=== PATIENT | male | born 1950 | race Caucasian/White ===

== ENCOUNTER 2016-09-07 23:29 | Emergency (ER) | payer OTHER ==
--- NOTE | 2016-09-07 23:45 | CPEKG ---
Heart Rate: 53 RR Interval: 1132 P-R Interval: 184 QRSD Interval: 172 QT Interval: 500 QTC Interval: 470 P [place]: 51 QRS [place]: 42 T Wave [place]: 46 EKG Severity - ABNORMAL ECG - EKG Impression: SINUS RHYTHM EKG Impression: RIGHT BUNDLE BRANCH BLOCK Electronically Signed By: Kumar Washington 08-Sep-2016 07:04:11
[2016-09-07] MEDS ORDERED: NS 1,000 ML IV ONE (23:55)
[2016-09-07 23:59] LABS: % IMMATURE GRANULYOCYTES 0.5 % (0.0-1.1); ABSOLUTE IMMATURE GRANULOCYTES 0.08 10^3/uL (0.00-0.10); ADD DIFF? NO; ADD MORPH? NO; ADD SCAN? NO; ATYPICAL LYMPHOCYTE FLAG 10 (0-99); FRAGMENT RBC FLAG 0 (0-99); HEMATOCRIT 42.4 % (40.0-51.0); HEMOGLOBIN 14.8 g/dL (13.7-17.5); LEFT SHIFT FLG 0 (0-99); LIPEMIA HEMOLYSIS FLAG 90 (0-99); MEAN CELL HEMOGLOBIN 31.1 pg (27.9-34.1); MEAN CELL HEMOGLOBIN CONCENTR. 34.9 g/dL (32.4-36.7); MEAN CELL VOLUME 89.1 fL (81.5-99.8); MEAN PLATELET VOLUME 10.4 fL (8.7-11.7); PLATELET CLUMPS FLAG 20 (0-99); PLATELET COUNT 191 10^3/uL (150-400); RED BLOOD CELL COUNT 4.76 10^6/uL (4.40-6.38); RED CELL DISTRIBUTION WIDTH 12.9 % (11.5-15.2)
[2016-09-08] MEDS ORDERED: ONDANSETRON 4 MG/2 ML VIAL IVP ONE (00:05)
[2016-09-08 00:16] LABS: ANION GAP 16 mEq/L (8-16); CALCIUM 9.8 mg/dL (8.5-10.4); CARBON DIOXIDE 17 mEq/l (22-31); CHLORIDE 106 mEq/L (97-110); CREATININE 1.1 mg/dL (0.7-1.3); GLOMERULAR FILTRATION RATE > 60; GLUCOSE 140 mg/dL (70-100); POTASSIUM 4.3 mEq/L (3.5-5.2); SODIUM 139 mEq/L (134-144)
[2016-09-08 00:56] LABS: TROPONIN I < 0.012 ng/mL (0-0.034)
[2016-09-08 02:10] VITALS: RESP 20
--- NOTE | 2016-09-08 02:32 | EDPHY ---
H & P Stated Complaint: N/V/D abd pain since 6pm tonight Time Seen by Provider: 09/07/16 23:58 HPI/ROS: Chief Complaint: Vomiting HPI: 66-year-old male began having some mild abdominal cramping in the afternoon and then around dinnertime began vomiting. He has vomited multiple times is been able to keep anything down since then. Did have 2 loose stools but no diarrhea. No blood or melena. No hematemesis. Has not had any further abdominal pain. No chest pain shortness of breath. No recent travel. did state that he appeared a little bit clammy. ROS: 10 point Review of Systems is negative except as noted in the HPI. PMH: Hypertension, GERD, BPH Medications: Omeprazole, aspirin, tamsulosin, losartan, amlodipine Allergies: No known drug allergies Social History: No smoking, occasional alcohol, occasional marijuana Family History: non-contributory Physical Exam: Gen: Awake, Alert, No Distress HEENT: Nose: no rhinorrhea Eyes: PERRLA, EOMI Mouth: Dry mucosa Neck: Supple, no JVD Chest: nontender, lungs clear to auscultation Heart: S1, S2 normal, no murmur Abd: Soft, non-tender, no guarding Back: no CVA tenderness, no midline tenderness Ext: no edema, non-tender Skin: no rash Neuro: CN II-XII intact, Sensation grossly intact, Strength 5/5 in bilateral upper and lower extremities - Personal History Current Tetanus Diphtheria and Acellular Pertussis (TDAP): Yes - Medical/Surgical History Hx Asthma: No Hx Chronic Respiratory Disease: No Hx Diabetes: No Hx Cardiac Disease: No Hx Renal Disease: No Hx Cirrhosis: No Hx Alcoholism: No Hx HIV/AIDS: No Hx Splenectomy or Spleen Trauma: No Other PMH: GERD, htn, BPH - Social History Smoking Status: Never smoked Constitutional: Initial Vital Signs Heart Rate 53 L 09/07/16 23:34 Respiratory Rate 16 09/07/16 23:34 Blood Pressure 136/76 H 09/07/16 23:34 O2 Sat (%) 98 09/07/16 23:34 O2 Delivery Mode Room Air O2 (L/minute) 2 Allergies/Adverse Reactions: No Known Allergies Allergy (Unverified 07/29/15 19:26) Home Medications: Medication Instructions Recorded Aspirin [Aspirin 81mg (OTC)] 81 mg PO DAILY #0 08/04/14 Losartan Potassium [Cozaar] 100 mg PO DAILY #0 08/04/14 Omeprazole [Prilosec 20 mg] 20 mg PO DAILY #0 08/04/14 Tamsulosin HCl [Flomax] 0.4 mg PO DAILY #0 08/04/14 Medical Decision Making - Diagnostics EKG Interpretation: ECG time 11:43 p.m., sinus rhythm with a rate of 53, normal axis, normal intervals, he is a right bundle branch block, no acute ST or T-wave changes. ED Course/Re-evaluation: 4-year-old male with some abdominal cramping in the afternoon and vomiting since. Does not have any abdominal pain since that time. He is clinically dehydrated. He was appearing a bit clammy this evening. Will check labs ECG in reassess. ECG is unremarkable, laboratory evaluations are negative including a normal troponin. Patient is feeling significantly improved after ondansetron and fluids. He is tolerating p.o.. No evidence of acute cardio pulmonary process at this time. He has a soft benign abdomen. Will discharge with follow-up with primary care physician instructions return for worsening. - Data Points Laboratory Results: Laboratory Results 09/07/16 23:50 09/07/16 23:50 09/07/16 09/07/16 23:50 23:50 WBC 15.80 10^3/uL H 10^3/uL (3.80-9.50) RBC 4.76 10^6/uL 10^6/uL (4.40-6.38) Hgb 14.8 g/dL g/dL (13.7-17.5) Hct 42.4 % % (40.0-51.0) MCV 89.1 fL fL (81.5-99.8) MCH 31.1 pg pg (27.9-34.1) MCHC 34.9 g/dL g/dL (32.4-36.7) RDW 12.9 % % (11.5-15.2) Plt Count 191 10^3/uL 10^3/uL (150-400) MPV 10.4 fL fL (8.7-11.7) Neut % (Auto) 72.7 % % (39.3-74.2) Lymph % (Auto) 19.1 % % (15.0-45.0) [place] % (Auto) 6.9 % % (4.5-13.0) Eos % (Auto) 0.4 % L % (0.6-7.6) Baso % (Auto) 0.4 % % (0.3-1.7) Nucleat RBC Rel Count 0.0 % % (0.0-0.2) Absolute Neuts (auto) 11.49 10^3/uL H 10^3/uL (1.70-6.50) Absolute Lymphs (auto) 3.01 10^3/uL H 10^3/uL (1.00-3.00) Absolute Monos (auto) 1.09 10^3/uL H 10^3/uL (0.30-0.80) Absolute Eos (auto) 0.07 10^3/uL 10^3/uL (0.03-0.40) Absolute Basos (auto) 0.06 10^3/uL 10^3/uL (0.02-0.10) Absolute Nucleated RBC 0.00 10^3/uL 10^3/uL (0-0.01) Immature Gran % 0.5 % % (0.0-1.1) Immature Gran # 0.08 10^3/uL 10^3/uL (0.00-0.10) Sodium 139 mEq/L mEq/L (134-144) Potassium 4.3 mEq/L mEq/L (3.5-5.2) Chloride 106 mEq/L mEq/L (97-110) Carbon Dioxide 17 mEq/l L mEq/l (22-31) Anion Gap 16 mEq/L mEq/L (8-16) BUN 26 mg/dL H mg/dL (7-23) Creatinine 1.1 mg/dL mg/dL (0.7-1.3) Estimated GFR > 60 Glucose 140 mg/dL H mg/dL (70-100) Calcium 9.8 mg/dL mg/dL (8.5-10.4) Troponin I < 0.012 ng/mL ng/mL (0-0.034) Medications Given: Discontinued Medications Sodium Chloride (Ns) 1,000 mls @ 0 mls/hr IV ONCE ONE PRN Reason: Wide Open Stop: 09/07/16 23:56 Last Admin: 09/07/16 23:55 Dose: 1,000 mls Ondansetron HCl (Zofran) 4 mg IVP EDNOW ONE Stop: 09/08/16 00:06 Last Admin: 09/08/16 00:14 Dose: 4 mg Departure - Departure Disposition: Home, Routine, Self-Care Clinical Impression: Vomiting Condition: Good Instructions: Ondansetron (By mouth), Acute Nausea and Vomiting (ED) Additional Instructions: Make sure to drink plenty of fluids. Follow up with primary care physician in 3-4 days for re-evaluation. Return to the emergency depart for increasing abdominal pain, uncontrolled nausea vomiting, fevers, chills, or any other concerns. Referrals: Timur Tamayo MD [Primary Care Provider] - As per Instructions
[2016-09-08] MEDS ORDERED: ONDANSETRON 4MG PREPACK#2 BTL TAKEHOME ONE (02:54)
[2016-09-08 06:00] VITALS: BP 144/81; PULSE 61; TEMP 98.1; O2SAT 97
== END 2016-09-08 03:10 | disposition home or self-care (01) ==
DX: R11.10 Vomiting, unspecified (principal); I10 Essential (primary) hypertension; Z79.82 Long term (current) use of aspirin
CPT/HCPCS: 93005; 96361; 96374; 99284; J2405

== ENCOUNTER 2016-10-01 17:07 | Observation (INO) | payer OTHER ==
[2016-10-01] MEDS ORDERED: ONDANSETRON 4 MG/2 ML VIAL IVP ONE ×2 (17:28→19:18)
[2016-10-01] MEDS ORDERED: NS 1,000 ML IV ONE ×2 (17:28→17:43)
--- NOTE | 2016-10-01 17:37 | EDPHY ---
H & P Time Seen by Provider: 10/01/16 17:28 HPI/ROS: CHIEF COMPLAINT: Nausea HISTORY OF PRESENT ILLNESS: The patient is a 66-year-old male who presents with acute nausea that started yesterday. The patient developed constipation yesterday, at that time he had associated nausea. He took X-Lax and was able to have a bowel movement. This morning the patient woke up and his nausea returned. He had one episode of emesis at 1pm, but has continued to feel nauseous. Patient had a normal bowel movement today. He continues to have severe nausea. No associated abdominal pain. The patient had a colonoscopy and endoscopy 2 weeks ago that were reportedly normal. REVIEW OF SYSTEMS: A comprehensive 10 point review of systems is otherwise negative aside from elements mentioned in the history of present illness. Past Medical/Surgical History: GERD, HTN, BPH Social History: . Lives at home with his . Smoking Status: Never smoked Physical Exam: General Appearance: Alert, appears uncomfortable Eyes: Pupils equal and round, no conjunctival pallor or injection ENT, Mouth: Mucous membranes moist Neck: Normal inspection Respiratory: Lungs are clear to auscultation Cardiovascular: Regular rate and rhythm Gastrointestinal: Abdomen is soft and non-tender Neurological: A&O, nonfocal, normal gait Skin: Warm and dry, no rash Extremities: Nontender, no pedal edema Psychiatric: Mood and affect normal Constitutional: Initial Vital Signs Temperature (C) 36.8 C 10/01/16 17:17 Heart Rate 66 10/01/16 17:17 Respiratory Rate 16 10/01/16 17:17 Blood Pressure 174/100 H 10/01/16 17:17 O2 Sat (%) 100 10/01/16 17:17 O2 Delivery Mode Room Air Allergies/Adverse Reactions: No Known Allergies Allergy (Unverified 07/29/15 19:26) Home Medications: Medication Instructions Recorded Losartan Potassium [Cozaar] 100 mg PO HS #0 08/04/14 Omeprazole [Prilosec 20 mg] 20 mg PO DAILY #0 08/04/14 Tamsulosin HCl [Flomax 0.4 MG (*)] 0.4 mg PO DAILY #0 08/04/14 Aspirin EC [Aspirin EC 81 mg (*)] 81 mg PO DAILY 10/01/16 Meloxicam [Mobic 15 mg] 15 mg PO DAILY 10/01/16 amLODIPine BESYLATE [Norvasc 5 mg 5 mg PO HS 10/01/16 (*)] levOFLOXACIN [levAQUIN (*)] 750 mg PO DAILY #8 tab 10/02/16 metroNIDAZOLE [Flagyl 500 mg (*)] 500 mg PO TID #24 tab 10/02/16 Medical Decision Making - Diagnostics Imaging: Discussed imaging studies w/ call box wirer Radiologist ED Course/Re-evaluation: Patient presents severe nausea and 1 episode of emesis. IV was established, patient received Zofran and fluids. 6:55 p.m.: I reevaluated the patient. He feels better after IV Zofran. No abdominal tenderness. Ice chips given. 7:50 p.m.: The patient complains of returned nausea. He received an additional 4mg Zofran. 8:45 p.m.: I reevaluated the patient, he continues to have nausea. Phenergan 25 mg orally given. He continues to have nausea after Phenergan. Abdomen remained soft and nontender. I ordered CT abd/pelvis. CT shows acute sigmoid diverticulitis. I discussed findings with the patient. Continues to have nausea. I do not think that he will be able to tolerate orals fluids/abx at home. He agrees with plan for admission. I started patient on IV Levaquin and Flagyl. 9:30 p.m.: I spoke to the hospitalist, Dr. Isaac, who accepts the patient for admission. Differential Diagnosis: Differential diagnosis includes though it is not limited to appendicitis, cholecystitis, diverticulitis, pyelonephritis, bowel perforation, small bowel obstruction. - Data Points Laboratory Results: Laboratory Results 10/01/16 17:45 10/01/16 17:45 Medications Given: Discontinued Medications Amlodipine Besylate (Norvasc) 5 mg PO HS [facility] Stop: 03/30/17 22:24 Last Admin: 10/01/16 23:04 Dose: 5 mg Aspirin Buffered (Aspirin Ec) 81 mg PO DAILY DOT Stop: 03/31/17 08:59 Last Admin: 10/02/16 10:30 Dose: 81 mg Enoxaparin Sodium (Lovenox) 40 mg SC DAILY [facility] Stop: 03/31/17 08:59 Last Admin: 10/02/16 10:33 Dose: Not Given Sodium Chloride (Ns) 1,000 mls @ 0 mls/hr IV ONCE ONE PRN Reason: Wide Open Stop: 10/01/16 17:29 Last Admin: 10/01/16 17:40 Dose: 1,000 mls Sodium Chloride (Ns) 1,000 mls @ 0 mls/hr IV EDNOW ONE; Wide Open PRN Reason: Protocol Stop: 10/01/16 17:44 Last Admin: 10/01/16 19:07 Dose: Not Given Levofloxacin/Dextrose (Levaquin 750 Mg (Premix)) 150 mls @ 100 mls/hr IV EDNOW ONE PRN Reason: Protocol Stop: 10/01/16 22:50 Last Admin: 10/01/16 23:12 Dose: 150 mls Metronidazole/Sodium Chloride (Flagyl 500 Mg (Premix)) 100 mls @ 100 mls/hr IV EDNOW ONE PRN Reason: Protocol Stop: 10/01/16 22:20 Last Admin: 10/01/16 21:25 Dose: 100 mls Metronidazole/Sodium Chloride (Flagyl 500 Mg (Premix)) 100 mls @ 100 mls/hr IV Q8HRS DOT PRN Reason: Protocol Stop: 11/01/16 05:59 Last Admin: 10/02/16 05:28 Dose: 100 mls Sodium Chloride (Ns) 1,000 mls @ 150 mls/hr IV CONT DOT Stop: 03/30/17 22:29 Last Admin: 10/02/16 08:42 Dose: 1,000 mls Metoclopramide HCl (Reglan Injection) 10 mg IVP EDNOW ONE Stop: 10/01/16 19:44 Last Admin: 10/01/16 20:41 Dose: 10 mg Ondansetron HCl (Zofran) 4 mg IVP EDNOW ONE Stop: 10/01/16 17:29 Last Admin: 10/01/16 17:40 Dose: 4 mg Ondansetron HCl (Zofran Odt 4 Mg Prepack#2) 1 btl TAKEHOME EDNOW ONE Stop: 10/01/16 18:57 Last Admin: 10/01/16 19:20 Dose: 1 btl Ondansetron HCl (Zofran) 4 mg IVP EDNOW ONE Stop: 10/01/16 19:19 Last Admin: 10/01/16 19:20 Dose: 4 mg Ondansetron HCl (Zofran) 4 mg IVP Q4HRS PRN PRN Reason: Nausea/Vomiting, Can't Take PO Stop: 03/30/17 22:15 Last Admin: 10/01/16 23:04 Dose: 4 mg Pantoprazole Sodium (Protonix) 40 mg PO DAILY DOT Stop: 03/31/17 08:59 Last Admin: 10/02/16 10:29 Dose: 40 mg Promethazine HCl (Phenergan) 25 mg PO EDNOW ONE Stop: 10/01/16 19:50 Last Admin: 10/01/16 19:52 Dose: 25 mg Tamsulosin HCl (Flomax) 0.4 mg PO DAILY DOT Stop: 03/31/17 08:59 Last Admin: 10/02/16 10:28 Dose: 0.4 mg Departure - Departure Disposition: [facility] Inpatient Acute Clinical Impression: Vomiting Qualifiers: Vomiting type: unspecified Vomiting Intractability: non-intractable Nausea presence: with nausea Qualified Code(s): R11.2 - Nausea with vomiting, unspecified Diverticulitis Qualifiers: Diverticulitis site: large intestine Diverticulitis bleeding: without bleeding Diverticulitis complication: without perforation or abscess Qualified Code(s): K57.32 - Diverticulitis of large intestine without perforation or abscess without bleeding Condition: Good Report Scribed for: Nae Mohr Report Scribed by: Cande Triana Date of Report: 10/01/16 Time of Report: 17:30 Physician Review and Approval Statement: 10/01/16 17:30 Portions of this note were transcribed by a medical affairs specialist. I personally performed the history, physical exam, and medical decision-making; and confirmed the accuracy of the information in the transcribed note.
[2016-10-01 17:57] LABS: % IMMATURE GRANULYOCYTES 0.5 % (0.0-1.1); ABSOLUTE IMMATURE GRANULOCYTES 0.09 10^3/uL (0.00-0.10); ADD DIFF? NO; ADD MORPH? NO; ADD SCAN? NO; ATYPICAL LYMPHOCYTE FLAG 0 (0-99); FRAGMENT RBC FLAG 0 (0-99); HEMATOCRIT 45.8 % (40.0-51.0); HEMOGLOBIN 16.4 g/dL (13.7-17.5); LEFT SHIFT FLG 0 (0-99); LIPEMIA HEMOLYSIS FLAG 90 (0-99); MEAN CELL HEMOGLOBIN 30.8 pg (27.9-34.1); MEAN CELL HEMOGLOBIN CONCENTR. 35.8 g/dL (32.4-36.7); MEAN CELL VOLUME 86.1 fL (81.5-99.8); MEAN PLATELET VOLUME 10.7 fL (8.7-11.7); PLATELET CLUMPS FLAG 0 (0-99); PLATELET COUNT 219 10^3/uL (150-400); RED BLOOD CELL COUNT 5.32 10^6/uL (4.40-6.38); RED CELL DISTRIBUTION WIDTH 12.6 % (11.5-15.2)
[2016-10-01 18:05] LABS: ALANINE AMINOTRANSFERASE 39 IU/L (21-72); ALBUMIN 4.8 g/dL (3.5-5.0); ALKALINE PHOSPHATASE 111 IU/L (38-126); ANION GAP 17 mEq/L (8-16); ASPARTATE AMINOTRANSFERASE 30 IU/L (17-59); BILIRUBIN,TOTAL 1.7 mg/dL (0.1-1.4); BILIRUBIN-CONJUGATED 0.4 mg/dL (0.0-0.5); BILIRUBIN-UNCONJUGATED 1.3 mg/dL (0.0-1.1); CALCIUM 10.2 mg/dL (8.5-10.4); CARBON DIOXIDE 15 mEq/l (22-31); CHLORIDE 108 mEq/L (97-110); CREATININE 1.1 mg/dL (0.7-1.3); GLOMERULAR FILTRATION RATE > 60; GLUCOSE 131 mg/dL (70-100); POTASSIUM 4.1 mEq/L (3.5-5.2); SODIUM 140 mEq/L (134-144); TOTAL PROTEIN 8.3 g/dL (6.3-8.2)
[2016-10-01] MEDS ORDERED: ONDANSETRON 4MG PREPACK#2 BTL TAKEHOME ONE (18:56)
[2016-10-01] MEDS ORDERED: ONDANSETRON 4 MG/2 ML VIAL ONE (19:17)
[2016-10-01] MEDS ORDERED: METOCLOPRAMIDE 10 MG/2 ML VIAL IVP ONE (19:43)
[2016-10-01] MEDS ORDERED: PROMETHAZINE HCL 25 MG TAB PO ONE (19:49)
[2016-10-01] MEDS ORDERED: IOPAMIDOL (ISOVUE-300) 100 ML BTL ONE (20:47)
[2016-10-01] MEDS ORDERED: ACETAMINOPHEN 325 MG TAB PO PRN (22:16)
[2016-10-01] MEDS ORDERED: ONDANSETRON 4 MG/2 ML VIAL IVP PRN ×2 (22:16→22:57)
[2016-10-01] MEDS ORDERED: ONDANSETRON DISINTEGRATING 4 MG TAB PO PRN ×2 (22:16→22:57)
[2016-10-01] MEDS ORDERED: HYDROmorphONE/DILAUDID 2 MG TAB PO PRN (22:16)
[2016-10-01] MEDS ORDERED: PROMETHAZINE HCL 25 MG TAB PO PRN (22:16)
[2016-10-01] MEDS ORDERED: PROMETHAZINE HCL 25 MG/ML INJ IVP PRN ×2 (22:16→22:57)
[2016-10-01] MEDS ORDERED: HYDROmorphONE/DILAUDID 1 MG/ML SYR IVP PRN (22:16)
[2016-10-01] MEDS ORDERED: amLODIPine BESYLATE 5 MG TAB PO SCH (22:25)
[2016-10-01] MEDS: NS 1,000 ML IV SCH (22:41)
--- NOTE | 2016-10-01 22:51 | PDGENHP ---
History and Physical - Chief Complaint Acute Nausea - History of Present Illness PCP: Dr. Tamayo HPI: 66-year-old male presenting with acute nausea characterized as unsettled, queasy feeling with associated nonbloody emesis, constipation. Onset of symptoms was day prior to presentation and duration was intermittent thereafter. The nausea was so severe that the patient felt like he was unable to eat or drink. Attempts to do so would exacerbate the nausea symptoms. Did take 1 dose of Ex-Lax and this alleviated his constipation. His stool was nonbloody. He denies overt abdominal pain. He experienced similar symptoms approximately 1 month ago but they abated with as-needed Zofran. History Information - Allergies/Home Medication List Allergies/Adverse Reactions: No Known Allergies Allergy (Unverified 07/29/15 19:26) Home Medications: Losartan Potassium [Cozaar] 100 mg PO HS #0 08/04/14 [Last Taken 09/30/16] Omeprazole [Prilosec 20 mg] 20 mg PO DAILY #0 08/04/14 [Last Taken 10/01/16] Tamsulosin HCl [Flomax] 0.4 mg PO DAILY #0 08/04/14 [Last Taken 10/01/16] Aspirin EC [Aspirin EC 81 mg (*)] 81 mg PO DAILY 10/01/16 [Last Taken 10/01/16] Meloxicam [Mobic 15 mg] 15 mg PO DAILY 10/01/16 [Last Taken 10/01/16] amLODIPine BESYLATE [Norvasc 5 mg (*)] 5 mg PO HS 10/01/16 [Last Taken 09/30/16] I have personally reviewed and updated: family history, medical history, social history, surgical history - Past Medical History GERD, hypertension Additional medical history: BPH. Psoriasis. Skin cancer - Surgical History Additional surgical history: screening colonoscopy and upper endoscopy 2 weeks ago, reportedly normal - Family History Additional family history: no family history of coronary artery disease, no family history of colon cancer, no family history of diverticulitis - Social History Smoking Status: Never smoked Alcohol Use: Occasionally Drug Use: Marijuana ( occasionally) Additional social history: independent in his ADLs Review of Systems ROS: 10pt was reviewed & negative except for what was stated in HPI & below Gastrointestinal: Reports: vomitting, constipation, nausea Physical Exam Temp Pulse Resp BP Pulse Ox 36.8 C 60 16 184/92 H 99 10/01/16 22:00 10/01/16 22:00 10/01/16 22:00 10/01/16 22:00 10/01/16 22:00 Constitutional: no apparent distress, appears nourished, not in pain Eyes: PERRL, anicteric sclera, EOMI Ears, Nose, Mouth, Throat: moist mucous membranes, hearing normal, ears appear normal, no oral mucosal ulcers Cardiovascular: regular rate and rhythym, systolic murmur ( 1/6 at the right sternal border), No irregularly irregular, No tachycardia, No edema Respiratory: no respiratory distress, no rales or rhonchi, clear to auscultation Gastrointestinal: normoactive bowel sounds, soft, non-tender abdomen, no palpable masses, No distension Skin: other ( scattered hyperpigmentation over the abdomen and trunk without any ecchymoses) Neurologic: AAOx3, No facial droop Psychiatric: interacting appropriately, not anxious, not encephalopathic, thought process linear Lab Data & Imaging Review 10/01/16 17:45 10/01/16 17:45 WBC 16.89 10^3/uL (3.80-9.50) H 10/01/16 17:45 RBC 5.32 10^6/uL (4.40-6.38) 10/01/16 17:45 Hgb 16.4 g/dL (13.7-17.5) 10/01/16 17:45 Hct 45.8 % (40.0-51.0) 10/01/16 17:45 MCV 86.1 fL (81.5-99.8) 10/01/16 17:45 MCH 30.8 pg (27.9-34.1) 10/01/16 17:45 MCHC 35.8 g/dL (32.4-36.7) 10/01/16 17:45 RDW 12.6 % (11.5-15.2) 10/01/16 17:45 Plt Count 219 10^3/uL (150-400) 10/01/16 17:45 MPV 10.7 fL (8.7-11.7) 10/01/16 17:45 Neut % (Auto) 79.7 % (39.3-74.2) H 10/01/16 17:45 Lymph % (Auto) 12.9 % (15.0-45.0) L 10/01/16 17:45 [place] % (Auto) 6.7 % (4.5-13.0) 10/01/16 17:45 Eos % (Auto) 0.0 % (0.6-7.6) L 10/01/16 17:45 Baso % (Auto) 0.2 % (0.3-1.7) L 10/01/16 17:45 Nucleat RBC Rel Count 0.0 % (0.0-0.2) 10/01/16 17:45 Absolute Neuts (auto) 13.46 10^3/uL (1.70-6.50) H 10/01/16 17:45 Absolute Lymphs (auto) 2.18 10^3/uL (1.00-3.00) 10/01/16 17:45 Absolute Monos (auto) 1.13 10^3/uL (0.30-0.80) H 10/01/16 17:45 Absolute Eos (auto) 0.00 10^3/uL (0.03-0.40) L 10/01/16 17:45 Absolute Basos (auto) 0.03 10^3/uL (0.02-0.10) 10/01/16 17:45 Absolute Nucleated RBC 0.00 10^3/uL (0-0.01) 10/01/16 17:45 Immature Gran % 0.5 % (0.0-1.1) 10/01/16 17:45 Immature Gran # 0.09 10^3/uL (0.00-0.10) 10/01/16 17:45 Sodium 140 mEq/L (134-144) 10/01/16 17:45 Potassium 4.1 mEq/L (3.5-5.2) 10/01/16 17:45 Chloride 108 mEq/L (97-110) 10/01/16 17:45 Carbon Dioxide 15 mEq/l (22-31) L 10/01/16 17:45 Anion Gap 17 mEq/L (8-16) H 10/01/16 17:45 BUN 21 mg/dL (7-23) 10/01/16 17:45 Creatinine 1.1 mg/dL (0.7-1.3) 10/01/16 17:45 Estimated GFR > 60 10/01/16 17:45 Glucose 131 mg/dL (70-100) H 10/01/16 17:45 Calcium 10.2 mg/dL (8.5-10.4) 10/01/16 17:45 Total Bilirubin 1.7 mg/dL (0.1-1.4) H 10/01/16 17:45 Conjugated Bilirubin 0.4 mg/dL (0.0-0.5) 10/01/16 17:45 Unconjugated Bilirubin 1.3 mg/dL (0.0-1.1) H 10/01/16 17:45 AST 30 IU/L (17-59) 10/01/16 17:45 ALT 39 IU/L (21-72) 10/01/16 17:45 Alkaline Phosphatase 111 IU/L (38-126) 10/01/16 17:45 Total Protein 8.3 g/dL (6.3-8.2) H 10/01/16 17:45 Albumin 4.8 g/dL (3.5-5.0) 10/01/16 17:45 Lipase 62.0 IU/L (23-300) 10/01/16 17:45 Visualized and Interpreted imaging results: Yes Interpretation: abdominal CT scan demonstrating sigmoid diverticulitis with small hiatal hernia, enlarged prostate, small pancreatic calculi Assessment & Plan Assessment: 66-year-old male presents with acute diverticulitis complicated by metabolic acidosis and inability to tolerate oral intake Plan: 1. Diverticulitis. Acute, new problem this provider, no further workup indicated at this juncture. Evidenced by radiographic findings as well as symptomatic nausea, resulting in inability to tolerate oral intake -supportive care with IV fluids, NPO with sips and chips, antiemetic medications -patient received levofloxacin and Flagyl in the emergency department, will continue -reviewed outside records including 09/08/2016 emergency department report by Dr. Deandre Washington, I suspect that the vomiting and cramping described with concomitant leukocytosis was an early manifestation of diverticulitis unfortunately the patient does not have any evidence of abscess formation on his present CT scan -will assess the patient for oral tolerance and ability to advance diet tomorrow as well as introduce oral antibiotics and cycle in oral antiemetics -recommend outpatient surgery consultation for preemptive planning if the patient experiences any recurrent episodes 2. Metabolic acidosis. Acute, secondary to hypovolemia, give normal saline and reassess 3. Acute kidney injury. Secondary to hypovolemia, normal saline and reassess creatinine, monitor urine output 4. Chronic hypertension. Continue patient's amlodipine, hold his ARB in the setting of GI losses, continue to monitor Diet. NPO with sips and chips Prophylaxis. Moderate risk patient, Lovenox 40 Code. Full, is MPOA Disposition. Anticipated discharge is 10/02/2016, pending clinical resolution of condition outlined above. I have discussed patient's presentation with Dr. Isaac, she has signed out this patient to me for evaluation at the end of her shift.
[2016-10-02 04:21] VITALS: O2SAT 96
[2016-10-02 05:02] LABS: % IMMATURE GRANULYOCYTES 0.5 % (0.0-1.1); ABSOLUTE IMMATURE GRANULOCYTES 0.08 10^3/uL (0.00-0.10); ADD DIFF? NO; ADD MORPH? NO; ADD SCAN? NO; ATYPICAL LYMPHOCYTE FLAG 0 (0-99); FRAGMENT RBC FLAG 0 (0-99); HEMATOCRIT 40.4 % (40.0-51.0); HEMOGLOBIN 14.5 g/dL (13.7-17.5); LEFT SHIFT FLG 0 (0-99); LIPEMIA HEMOLYSIS FLAG 90 (0-99); MEAN CELL HEMOGLOBIN 31.6 pg (27.9-34.1); MEAN CELL HEMOGLOBIN CONCENTR. 35.9 g/dL (32.4-36.7); MEAN PLATELET VOLUME 10.7 fL (8.7-11.7); PLATELET CLUMPS FLAG 20 (0-99); PLATELET COUNT 179 10^3/uL (150-400); RED BLOOD CELL COUNT 4.59 10^6/uL (4.40-6.38); RED CELL DISTRIBUTION WIDTH 12.9 % (11.5-15.2)
[2016-10-02 05:15] LABS: ANION GAP 12 mEq/L (8-16); CARBON DIOXIDE 17 mEq/l (22-31); CHLORIDE 113 mEq/L (97-110); GLOMERULAR FILTRATION RATE > 60; GLUCOSE 101 mg/dL (70-100); POTASSIUM 4.2 mEq/L (3.5-5.2); SODIUM 142 mEq/L (134-144)
[2016-10-02 07:20] VITALS: BP 143/81; PULSE 68; RESP 16; TEMP 98.1
[2016-10-02] MEDS: NS 1,000 ML IV SCH (08:42)
[2016-10-02] MEDS ORDERED: ASPIRIN EC 81 MG TAB PO SCH (09:00)
[2016-10-02] MEDS ORDERED: NON-FORMULARY NEW DRUG (Omeprazole [Prilosec 20 Mg] 20 MG) PO SCH (09:00)
[2016-10-02] MEDS ORDERED: ENOXAPARIN 40 MG/0.4 ML SYR SC SCH (09:00)
[2016-10-02] MEDS ORDERED: PANTOPRAZOLE SODIUM 40 MG TAB PO SCH (09:00)
[2016-10-02] MEDS ORDERED: TAMSULOSIN HCL 0.4 MG CAP PO SCH (09:00)
--- NOTE | 2016-10-02 09:44 | HOSPPROG ---
Hospitalist Progress Note Assessment/Plan: Obed is a 66-year-old male presenting with acute nausea. Symptoms presented a day prior. Today is my first encounter with the patient/chart reviewed. *acute diverticulitis CT scan shows sigmoid diverticulitis/no abscess or perforation Abby has leukocytosis will need a colonoscopy and f/u in the OP setting/ had one2 months ago trial of cl liquids * Metabolic acidosis. * Acute kidney injury. * Chronic hypertension. 143/81 Subjective: Obed is feeling well/ wants to leave. Objective: Vital Signs Temp Pulse Resp BP Pulse Ox 36.7 C 68 16 143/81 H 96 10/02/16 07:16 10/02/16 07:16 10/02/16 07:16 10/02/16 07:16 10/02/16 07:16 Laboratory Results 10/02/16 04:18 10/02/16 04:18 10/01/16 10/02/16 10/03/16 05:59 05:59 05:59 Intake Total 2320 Output Total 200 Balance 2120 - Physical Exam Constitutional: no apparent distress, appears nourished, not in pain Eyes: PERRL Ears, Nose, Mouth, Throat: hearing normal Cardiovascular: regular rate and rhythym Respiratory: no respiratory distress Gastrointestinal: normoactive bowel sounds, soft, non-tender abdomen Skin: warm Musculoskeletal: full muscle strength, no muscle tenderness Neurologic: AAOx3 Psychiatric: interacting appropriately ICD10 Worksheet Patient Problems: Problems Problem Status Onset Diverticulitis Acute Vomiting Acute Diarrhea Acute Syncope Acute
--- NOTE | 2016-10-02 13:24 | GDS ---
[f rep st] DISCHARGE SUMMARY DISCHARGE DIAGNOSES: 1. Acute diverticulitis. 2. Metabolic acidosis. 3. Chronic hypertension. 4. Acute kidney injury. HISTORY OF PRESENT ILLNESS: Briefly, the patient is a 66-year-old gentleman, who presented to the emergency room with nausea and emesis. He was seen and evaluated in the emergency room. At that time, he had a CT of the abdomen performed. This showed sigmoid diverticulitis without evidence of perforation or abscess, as well as a tiny hiatal hernia and prostatic hypertrophy. He was admitted, treated with IV antibiotics. Today, he is markedly better. He will be discharged home and take antibiotics for a total of 10 days. HOSPITAL COURSE BY PROBLEM: 1. Acute diverticulitis: CT scan shows sigmoid diverticulitis, no abscess or perforation. Will continue Levaquin and Flagyl. He does have an elevated white blood cell count. Recommended that he get repeat labs at the end of this week with his primary care provider. Recommend he stay on clear liquids for the next day or two. 2. Metabolic acidosis: This improved with hydration. 3. Renal insufficiency: Improved with hydration. 4. Hypertension: Blood pressure medications have been resumed. CONDITION AT DISCHARGE: Stable; blood pressure is 143/81, O2 sats on room air at 96%, respiratory rate is 16, pulse is 68, temperature 36.7 Celsius. MEDICATIONS AT DISCHARGE: Please see the EMR. DISCHARGE INSTRUCTIONS: 1. Return to the ER if he develops any worsening abdominal pain, fever, or chills. 2. Take antibiotics as prescribed. Do not drink alcohol while on Flagyl, and to be aware that the Levaquin can affect tendons, especially the Achilles. /[id number]/MODL MTDD
[2016-10-02] MEDS ORDERED: LOSARTAN POTASSIUM 50 MG TAB PO SCH (21:00)
[2016-10-02] MEDS ORDERED: NON-FORMULARY NEW DRUG (Losartan Potassium [Cozaar] 100 MG) PO SCH (21:00)
== END 2016-10-02 12:30 | disposition home or self-care (01) ==
LOC: F3E 21:54
PROVIDERS: ADMIT Hospitalist; ATTEND Hospitalist
DX: K57.32 Diverticulitis of large intestine without perforation or abscess without bleeding (principal); E87.2 Acidosis; I10 Essential (primary) hypertension; N17.9 Acute kidney failure, unspecified; K44.9 Diaphragmatic hernia without obstruction or gangrene; K21.9 Gastro-esophageal reflux disease without esophagitis; N40.0 Benign prostatic hyperplasia without lower urinary tract symptoms; F12.90 Cannabis use, unspecified, uncomplicated
CPT/HCPCS: 74177; G0378; J1956; J2405; J2765; Q9967; 96365; J1650

== ENCOUNTER 2017-04-06 07:59 | Inpatient (IN) | payer OTHER ==
[~2017-04-06 07:59] MED LIST: ROPIVACAINE 0.2% 80 MG, EPINEPHrine 0.2 MG, KETOROLAC TROMETHAMINE 30 MG in SYRINGE 0 ML IU ONE; TRANEXAMIC ACID 3,000 MG in NS 50 ML IRR ONE
--- NOTE | 2017-04-06 08:07 | PDHPUP ---
History & Physical Update H&P update statement: This history and physical update is based on an assessment of the patient which was completed after admission or registration (within 24 hours), but prior to the surgery/procedure. H&P update: H&P reviewed & patient examined, no change in patient's condition since H&P completed
[2017-04-06] MEDS ORDERED: TRANEXAMIC ACID 3,000 MG/50 ML BAG IRR ONE (08:13)
[2017-04-06] MEDS ORDERED: FAMOTIDINE 20 MG TAB PO ONE (08:28)
[2017-04-06] MEDS ORDERED: ceFAZolin 2 GM/SWFI 2 GM/20 ML SYR IVP ONE (08:28)
[2017-04-06] MEDS ORDERED: DEXAMETHASONE 4 MG/ML VIAL IVP ONE (08:28)
[2017-04-06] MEDS ORDERED: ACETAMINOPHEN 325 MG TAB PO ONE (08:28)
[2017-04-06] MEDS ORDERED: LR 1,000 ML IV ONE (08:29)
[2017-04-06] MEDS ORDERED: MIDAZOLAM 2 MG/2 ML VIAL ONE (10:23)
[2017-04-06] MEDS ORDERED: PROPOFOL/EMULSION 500 MG/50 ML BOTTLE IV ONE (10:25)
--- NOTE | 2017-04-06 10:25 | PDANEPAE ---
ANE Past Medical History - Cardiovascular History Hx Hypertension: Yes Hx Arrhythmias: No Hx Chest Pain: No Hx Coronary Artery / Peripheral Vascular Disease: No Hx CHF / Valvular Disease: No Hx Palpitations: No Cardiovascular History Comment: pcp monitors bp meds - Pulmonary History Hx COPD: No Hx Asthma/Reactive Airway Disease: No Hx Recent Upper Respiratory Infection: No Hx Oxygen in Use at Home: No Hx Sleep Apnea: No Sleep Apnea Screening Result - Last Documented: Positive Pulmonary History Comment: joey triggers - Neurologic History Hx Cerebrovascular Accident: No Hx Seizures: No Hx Dementia: No Neurologic History Comment: DDD - Endocrine History Hx Diabetes: No - Renal History Hx Renal Disorders: Yes Renal History Comment: bph - Liver History Hx Hepatic Disorders: No - Neurological & Psychiatric Hx Hx Neurological and Psychiatric Disorders: No - Cancer History Hx Cancer: Yes Cancer History Comment: basal cell removed - Congenital Disorder History Hx Congenital Disorders: No - GI History Hx Gastrointestinal Disorders: Yes Gastrointestinal History Comment: reflux - Other Health History Other Health History: wears glasses. wears bilateral hearing aides. psoriasis - Chronic Pain History Chronic Pain: Yes (right hip) - Surgical History Prior Surgeries: hernia repair 2016. hernia surgery 30 yrs ago ANE Review of Systems Review of Systems: - Exercise capacity METS (RN): 4 METS ANE Patient History - Allergies Allergies/Adverse Reactions: No Known Allergies Allergy (Verified 04/06/17 08:31) - Home Medications Home Medications: Losartan Potassium [Cozaar] 100 mg PO DAILY #0 08/04/14 [Last Taken 04/05/17] Omeprazole [Prilosec 20 mg] 20 mg PO DAILY #0 08/04/14 [Last Taken 04/06/17] Tamsulosin HCl [Flomax 0.4 MG (*)] 0.4 mg PO HS #0 08/04/14 [Last Taken 04/05/17 ] Aspirin EC [Aspirin EC 81 mg (*)] 81 mg PO DAILY 10/01/16 [Last Taken 03/29/17] Meloxicam [Mobic 15 mg] 15 mg PO DAILY 10/01/16 [Last Taken 04/05/17] amLODIPine BESYLATE [Norvasc 5 mg (*)] 5 mg PO HS 10/01/16 [Last Taken 04/05/17] Betamethasone/Propylene Glyc [Betamethasone Dp Aug 0.05% Crm] 1 jeff TP DAILY PRN 03/20/17 [Last Taken 04/05/17] - NPO status NPO Since - Liquids (Date): 04/05/17 NPO Since - Liquids (Time): 21:00 NPO Since - Solids (Date): 04/05/17 NPO Since - Solids (Time): 19:00 - Smoking Hx Smoking Status: Never smoked - Family Anes Hx Family Hx Anesthesia Complications: none ANE Labs/Vital Signs - Vital Signs Blood Pressure: 137/63 Heart Rate: 82 Respiratory Rate: 17 O2 Sat (%): 96 Height: 170.18 cm Weight: 77.111 kg ANE Physical Exam - Airway Neck exam: FROM Mallampati Score: Class 1 Mouth exam: normal dental/mouth exam - Pulmonary Pulmonary: no respiratory distress - Cardiovascular Cardiovascular: regular rate and rhythym - ASA Status ASA Status: I ANE Anesthesia Plan Anesthesia Plan: spinal Total IV Anesthesia: Yes
[2017-04-06] MEDS ORDERED: LIDOCAINE 2% 100 MG/5 ML SYR ONE (10:28)
[2017-04-06] MEDS ORDERED: POLYETHYLENE GLYCOL 3350 17 GM PKT PO PRN (11:47)
[2017-04-06] MEDS ORDERED: ONDANSETRON DISINTEGRATING 4 MG TAB PO PRN (11:47)
[2017-04-06] MEDS ORDERED: MAGNESIUM HYDROXIDE 30 ML UDCUP PO PRN (11:47)
[2017-04-06] MEDS ORDERED: BISACODYL 10 MG SUPP PR PRN (11:47)
[2017-04-06] MEDS ORDERED: TEMAZEPAM 15 MG CAP PO PRN (11:47)
[2017-04-06] MEDS ORDERED: LACTULOSE 20 GM/30 ML UDCUP PO PRN (11:47)
[2017-04-06] MEDS ORDERED: ONDANSETRON 4 MG/2 ML VIAL IVP PRN ×2 (11:47→11:52)
[2017-04-06] MEDS ORDERED: DIPHENOXYLATE/ATROPINE LOMOTIL 1 TAB PO PRN (11:47)
[2017-04-06] MEDS ORDERED: PROMETHAZINE HCL 25 MG SUPPR PR PRN (11:47)
[2017-04-06] MEDS ORDERED: diphenhydrAMINE 25 MG CAP PO PRN (11:47)
[2017-04-06] MEDS ORDERED: PROMETHAZINE HCL 25 MG/ML INJ IVP PRN (11:47)
[2017-04-06] MEDS ORDERED: METOCLOPRAMIDE 10 MG/2 ML VIAL IVP PRN (11:47)
--- NOTE | 2017-04-06 11:47 | POSTOPPROG ---
Post Op Note Date of Operation: 04/06/17 Surgeon: Frandy Vang Internal Controls Consultant: pal vang Anesthesiologist: dr. hair Anesthesia: Spinal Pre-op Diagnosis: right hip OA Post-op Diagnosis: same Indication: right hip pain due to OA that failed conservative measures Procedure: R NICOLASA ant approach Findings: severe hip OA Inf/Abcess present in the surg proc area at time of surgery?: No EBL: 100-500
[2017-04-06] MEDS ORDERED: MEPERIDINE 25 MG/ML SYR IVP PRN (11:52)
[2017-04-06] MEDS ORDERED: ALBUTEROL 3 ML DEYVIAL IH PRN (11:52)
[2017-04-06] MEDS ORDERED: PHENYLEPHRINE HCL 100 MCG/ML SYR IVP PRN (11:52)
[2017-04-06] MEDS ORDERED: NALOXONE HCL 0.4 MG/ML INJ IVP PRN (11:52)
--- NOTE | 2017-04-06 11:54 | POSTANESTH ---
Post Anesthetic Evaluation Cardiovascular Status: Similar to Pre-Op Cond Respiratory Status: Similar to Pre-op Cond. Level of Consciousness/Mental Status: Mildly Sleepy, Arousable Pain Control: Adequate, Prn Tx Ordered Nausea/Vomiting Control: Adequate, Prn Tx Ordered Complications Possibly Related to Anesthesia: None Noted
[2017-04-06] MEDS ORDERED: LR 1,000 ML IV SCH (12:00)
[2017-04-06] MEDS ORDERED: ceFAZolin 2 GM/DEXTROSE 100 ML IV SCH (14:00)
[2017-04-06] MEDS ORDERED: fentaNYL 100 MCG/2 ML INJ ONE ×2 (14:26→15:11)
[2017-04-06] MEDS: fentaNYL 100 MCG/2 ML INJ IVP PRN ×2 (14:31→15:21)
[2017-04-06] MEDS ORDERED: BETAMETHASONE AUGMENTED 0.05% 15GM CREAM TP PRN (17:30)
[2017-04-06] MEDS: ACETAMINOPHEN 325 MG TAB PO SCH ×2 (17:56→18:19)
[2017-04-06] MEDS: ceFAZolin 2 GM/SWFI 2 GM/20 ML SYR IVP SCH (18:16)
[2017-04-06] MEDS: oxyCODONE IR 5 MG TAB PO PRN ×2 (19:25→20:42)
[2017-04-06] MEDS: ASPIRIN 81 MG CHEWABLE TAB PO SCH (20:42)
[2017-04-06] MEDS: CYCLOBENZAPRINE 10 MG TAB PO PRN (20:42)
[2017-04-06] MEDS: SENNOSIDES/DOCUSATE SODIUM TAB PO SCH (20:42)
[2017-04-06] MEDS: FAMOTIDINE 20 MG TAB PO SCH (20:43)
[2017-04-06] MEDS ORDERED: TAMSULOSIN HCL 0.4 MG CAP PO SCH (21:00)
[2017-04-06] MEDS ORDERED: amLODIPine BESYLATE 5 MG TAB PO SCH (21:00)
[2017-04-07 00:09] VITALS: RESP 16
[2017-04-07] MEDS: ceFAZolin 2 GM/SWFI 2 GM/20 ML SYR IVP SCH (00:48)
[2017-04-07] MEDS: oxyCODONE IR 5 MG TAB PO PRN ×3 (00:48→08:47)
[2017-04-07] MEDS: ACETAMINOPHEN 325 MG TAB PO SCH ×2 (00:48→05:28)
[2017-04-07 07:24] VITALS: BP 138/81; PULSE 62; TEMP 98.2
[2017-04-07] MEDS: FAMOTIDINE 20 MG TAB PO SCH (08:46)
[2017-04-07] MEDS: SENNOSIDES/DOCUSATE SODIUM TAB PO SCH (08:46)
[2017-04-07] MEDS: ASPIRIN 81 MG CHEWABLE TAB PO SCH (08:47)
[2017-04-07] MEDS: CYCLOBENZAPRINE 10 MG TAB PO PRN (08:47)
[2017-04-07] MEDS ORDERED: NON-FORMULARY NEW DRUG (Omeprazole [Prilosec 20 Mg] 20 MG) PO SCH (09:00)
[2017-04-07] MEDS ORDERED: NON-FORMULARY NEW DRUG (Losartan Potassium [Cozaar] 100 MG) PO SCH (09:00)
[2017-04-07] MEDS ORDERED: LOSARTAN POTASSIUM 50 MG TAB PO SCH (09:00)
--- NOTE | 2017-04-07 09:57 | SOAPPROG ---
SOAP Progress Note Assessment/Plan: Assessment: Pat is doing well POD 1 s/p R NICOLASA pain is well controlled, encouraged patient to take tylenol schedule basis and to take oxycodone only if severe pain as often the side effects of oxycodone are worse than the pain DVT ppx: recommend aspirin 81 mg BID for 4 weeks d/c planning: d/c to home today Plan: 04/07/17 09:56 Subjective: Pat is doing well today, denies SOB, chest pain and N/V. Objective: Vital Signs Temp Pulse Resp BP Pulse Ox 36.8 C 62 16 138/81 H 93 04/07/17 07:23 04/07/17 07:23 04/07/17 07:23 04/07/17 08:46 04/07/17 07:23 Laboratory Results 04/07/17 05:02 04/06/17 04/07/17 04/08/17 05:59 05:59 05:59 Intake Total 1800 1000 Output Total 1100 Balance 700 1000 RLE: incision dressing is clean and dry, NVI, +pf/df ICD10 Worksheet Patient Problems: Problems Problem Status Onset Primary localized osteoarthritis of right hip Acute Diarrhea Acute Diverticulitis Acute Syncope Acute Vomiting Acute
--- NOTE | 2017-04-07 10:39 | GDS ---
[f rep st] DISCHARGE SUMMARY ADMIT DIAGNOSIS: Right hip osteoarthritis. DISCHARGE DIAGNOSIS: Right hip osteoarthritis. PROCEDURE: Right total hip arthroplasty. VTE PROPHYLAXIS: Recommend baby aspirin 81 mg twice daily for 4 weeks. BRIEF DESCRIPTION OF HOSPITAL STAY: The patient was admitted for an elective joint arthroplasty. Th e patient tolerated the procedure well and has passed physical therapy. The patient was given approp riate antibiotic prophylaxis and venous thromboembolism prophylaxis. The patient's pain was well con trolled on oral pain medication, patient was holding down food, and had urinated. Decision was made to discharge the patient. The patient was given post-operative prescriptions pre-operatively. PLAN: Follow up as scheduled in Dr. Walker's office 04/26 at 9 a.m. /[id number]/MODL
[2017-04-07 11:37] VITALS: O2SAT 95
--- NOTE | 2017-04-07 12:05 | ASDISCHSUM ---
Discharge Information Plan Status:Home with No Needs Medically Cleared to Leave: Discharge Date:04/07/2017 11:04 AM CM D/C Disposition:Home, Routine, Self-Care ADT D/C Disposition:Home, Routine, Self-Care Projected Discharge Date:04/07/2017 11:04 AM Transportation at D/C: Discharge Delay Reason: Follow-Up Date:04/07/2017 11:04 AM Discharge Slot: Final Diagnosis: Placement Information Patient Contact Information Contact Name:ANGEL Relationship: Address:[address] City:[place] Alternate Phone: [facility]/Zip Code:[place] [address] Email: Financial Information Financial Class:Medicare Advantage Plans Primary Plan Desc:[facility] ADVANTAGE PLANS Primary Plan Number:[id number] Secondary Plan Desc: Secondary Plan Number: Assessment Information Intervention Information
--- NOTE | 2017-04-10 08:37 | GOP ---
[f rep st] OPERATIVE REPORT DATE OF OPERATION: 04/06/2017 SURGEON: Brenda Walker MD CHIEF MEDICAL OFFICER: MAAME Perdue ANESTHESIA: Spinal. PREOPERATIVE DIAGNOSIS: Right hip osteoarthritis. POSTOPERATIVE DIAGNOSIS: Right hip osteoarthritis. PROCEDURE PERFORMED: Right total hip arthroplasty with x-ray. FINDINGS: ESTIMATED BLOOD LOSS: 200 cc. INDICATIONS: The patient has progressively worsening arthritis of the hip which has failed medical m anagement. The patient understands the treatment options including continued non-operative care and has selected surgical intervention. The patient has decided to undergo total hip arthroplasty via th e direct anterior approach, understanding the risks of the procedure including, but not limited to, n eurovascular injury, infection, persistent pain, component wear and loosening, deep venous thrombosis , pulmonary embolism, limb length inequality, hip instability (including dislocation), and intra-oper ative fractures. DESCRIPTION OF PROCEDURE: After proper identification of the patient including verification and artie ing the surgical site, the patient was brought to the operating room and placed in the supine positio n. All bony prominences were well padded. Anesthesia was induced without complication and intraveno us prophylactic antibiotics were administered prior to skin incision. The operative leg was placed in the Trumpf Arch table extension and the well leg in a Yellofin leg ho lder. The patient was prepped and draped in the usual sterile fashion. The C-arm was draped for int ra-operative fluoroscopy to check acetabular position, femoral component position including leg lengt h and femoral offset. Attention was then drawn to surgical exposure of the hip. An incision was made with a #10 Bard Fern r blade starting 3 cm lateral and 3 cm distal to the anterior superior iliac spine measuring 8-10 cm and coursing distally toward the greater trochanter. The skin and subcutaneous tissues were divided sharply down to the fascia kendall. The fascia kendall was incised in line with the skin incision exposing the underlying tensor fascia kendall muscle. The muscle was bluntly elevated from the fascia and the f irst extracapsular Cobra retractor was placed laterally at the junction of the superior femoral neck and greater trochanter. The lateral femoral circumflex vessels were identified, cauterized, and divi ded with the Aquamantys bipolar cautery. The deep investing fascia of the TFL was divided to allow p celio mobilization of the muscle preventing damage during the retraction. The reflected head of the rectus femoris muscle was elevated off the anterior hip capsule and a medial Cobra retractor was plac ed just proximal to the lesser trochanter. The anterior capsulotomy was made sharply from the superolateral acetabulum to the saddle junction of the superior femoral neck and greater trochanter, then coursing inferomedial towards the lesser troc hanter. The retractors were then placed in the intracapsular position for femoral neck osteotomy. C orresponding to pre-operative templating, the osteotomy was made with the oscillating saw carefully p rotecting the greater trochanter and soft tissues. The femoral head was removed from the acetabulum with a corkscrew and confirmed to be severely arthritic with exposed bone, deformity and osteophytes. Similar findings were confirmed in the acetabulum. The Arch table extension was then placed in 40 degrees external rotation. Attention was then drawn to the acetabular preparation. After placement of the anterior and posterio r Cobra retractors outside the labrum and intracapsular, the circumferential labrum was removed sharp ly. The foveal contents were then removed and hemostasis obtained with cautery. The first reamer selected was sized using the removed femoral head. Reaming began with medialization and then commenced in 2 mm increments at 45 degrees of abduction and 15 degrees of anteversion using fluoroscopic navigation. Reaming ceased 1 mm less than the definitive acetabular component and jere esponded to the pre-operative templating. The final acetabular component was inserted using fluorosc opy to achieve proper orientation yielding excellent purchase and stability in the acetabulum. The f inal acetabular liner was then placed and its seating confirmed. Attention was then turned to the femur. The Arch table extension was placed in extension and adducti on, delivering the osteotomized femoral neck into the wound. A 2-pronged femoral elevator was placed at the calcar and another at the tip of the greater trochanter. The posterolateral capsule was rele ased with cautery allowing mobilization of the femur lateral and anterior for preparation. The exter nal rotators were visualized and preserved. A curette and rongeur were used to open the starting poi nt for broaching. Serial broaching started with the #0 broach and ended with the broach that exhibit ed excellent fit in the proximal femur. A change in pitch during mallet strikes was accompanied by t he inability to advance the broach any further. The trial reduction was performed and fluoroscopic n avigation was utilized to check limb length. Adjustments were made to equalize limb length according ly. After the final trials were accepted they were removed and the wound was copiously lavaged. The femo ral component was seated to the same depth as the final broach and the femoral head was impacted onto the clean trunnion. The hip was then reduced for the final time and once more fluoroscopy was used to check that limb length equality was achieved. The wound was irrigated and closed in layers, the fascia kendall with 2-0 Quill, the subcutaneous tissue with 2-0 Quill, and the skin with Dermabond. Sterile dressings were applied. Final sharps and spon ge counts were accurate. The patient was then transferred to a hospital bed and brought to the [facility] room in stable condition. IMPLANTS: Accolade II, size 4 at 127. Acetabular component a 58 mm Tritanium. The liner is a Tride nt X3, 36 mm. The head is a Biolox Delta, 36 mm -2.5. /[id number]/MODL
== END 2017-04-07 11:04 | disposition home or self-care (01) | DRG 470 ==
LOC: F3N 07:59
PROVIDERS: ADMIT Orthopaedic Surgery; ATTEND Orthopaedic Surgery
PROC: 0SR904A Replacement of Right Hip Joint with Ceramic on Polyethylene Synthetic Substitute, Uncemented, Open Approach (ICD-10-PCS; principal; 2017-04-06 10:15)
DX: M16.11 Unilateral primary osteoarthritis, right hip (principal)
CPT/HCPCS: 97116-GP; 97161-GP; 97165-GO; G8978-GP-CI; G8979-GP-CI; G8980-GP-CI; G8987-GO-CI; G8988-GO-CI; G8989-GO-CI; J0171; J0690; J1100; J1885; J2001; J2250; J2370; J2704; J2795; J3010

== ENCOUNTER 2018-01-22 17:20 | Emergency (ER) | payer OTHER ==
--- NOTE | 2018-01-22 17:44 | EDPHY ---
HPI/HX/ROS/PE/MDM Narrative: CHIEF COMPLAINT: Abdominal pain, constipation. HPI: This patient is a 67 year old male with history of diverticulitis. He presents with abdominal pain, nausea, constipation, and weakness. He was admitted in September 2016 for similar symptoms and diagnosed with sigmoid diverticulitis by CT. His symptoms were relieved with antibiotics. Today, he had been constipated, and around 14:00 he developed bilateral lower abdominal pain. He called his primary care provider's office around 3pm, and was referred to the ED for further evaluation. The patient complains of constant nausea and endorses a near -syncopal event prior to arrival. He denies any dysuria. No blood in his stool. History of hernia repair, no other abdominal surgeries. He denies fever, chest pain, shortness of breath, or other associated symptoms. REVIEW OF SYSTEMS: A comprehensive 10 system review of systems is otherwise negative aside from elements mentioned in the history of present illness and medical decision making. PMH: Diverticulitis. SOCIAL HISTORY: . Lives in [place]. Retired. PHYSICAL EXAM: General:Patient is alert, uncomfortable appearing. ENT:Eyes are normal to inspection. ENT inspection normal. Neck: Normal inspection. Full range of motion. Respiratory:No respiratory distress. Breath sounds normal bilaterally. Cardiovascular: Regular rate and rhythm. Strong peripheral pulses. Normal cap refill. Abdomen: Patient is uncomfortable and complains of bilateral lower abdominal pain, but has no specific areas of abdominal tenderness. There are no peritoneal signs. There are normal bowel sounds. Back: Normal to inspection. No tenderness to palpation. Skin: Normal color. No rash. Warm and dry. Extremities: Normal appearance. Full range of motion. Neuro: Oriented x3. Normal motor function. Normal sensory function. ED Course: 67 y/o male with history of diverticulitis presents with abdominal pain, nausea , constipation, and weakness. He is uncomfortable on exam, but has no specific area of abdominal tenderness. Plan for labs including CBC, chemistries, UA. Plan to administer 4mg IV Zofran, 4mg IV morphine, and 1L IV NS for symptom relief. WBC elevated at 14,000. Plan for x-ray abdomen to r/o obstruction or other acute processes. Abdominal x-ray negative for obstruction. Discussed results with patient. I offered CT for further evaluation, but the patient declines. Symptoms are consistent with his prior diverticulitis presentation. He currently feels completely well following Zofran and morphine administration. Offered admission , but the patient declines and prefers to go home with PO antibiotics. Plan to administer 500mg IV Flagyl and 500mg PO Cipro prior to discharge. Patient remains pain free and comfortable. Plan to discharge home in good condition with prescription for Flagyl and Cipro. Follow up and return precautions discussed. He is comfortable with this plan. - Data Points Imaging Results: Imaging Impressions Abdomen X-Ray 01/22/18 18:20 Impression: No evidence of bowel obstruction. Imaging: I viewed and interpreted images myself Laboratory Results: Laboratory Results 01/22/18 16:00 01/22/18 16:00 01/22/18 01/22/18 16:00 16:00 WBC 14.05 10^3/uL H 10^3/uL (3.80-9.50) RBC 5.57 10^6/uL 10^6/uL (4.40-6.38) Hgb 16.9 g/dL g/dL (13.7-17.5) Hct 47.6 % % (40.0-51.0) MCV 85.5 fL fL (81.5-99.8) MCH 30.3 pg pg (27.9-34.1) MCHC 35.5 g/dL g/dL (32.4-36.7) RDW 12.4 % % (11.5-15.2) Plt Count 219 10^3/uL 10^3/uL (150-400) MPV 10.2 fL fL (8.7-11.7) Neut % (Auto) 81.0 % H % (39.3-74.2) Lymph % (Auto) 11.4 % L % (15.0-45.0) Mckean % (Auto) 6.4 % % (4.5-13.0) Eos % (Auto) 0.2 % L % (0.6-7.6) Baso % (Auto) 0.3 % % (0.3-1.7) Nucleat RBC Rel Count 0.0 % % (0.0-0.2) Absolute Neuts (auto) 11.38 10^3/uL H 10^3/uL (1.70-6.50) Absolute Lymphs (auto) 1.60 10^3/uL 10^3/uL (1.00-3.00) Absolute Monos (auto) 0.90 10^3/uL H 10^3/uL (0.30-0.80) Absolute Eos (auto) 0.03 10^3/uL 10^3/uL (0.03-0.40) Absolute Basos (auto) 0.04 10^3/uL 10^3/uL (0.02-0.10) Absolute Nucleated RBC 0.00 10^3/uL 10^3/uL (0-0.01) Immature Gran % 0.7 % % (0.0-1.1) Immature Gran # 0.10 10^3/uL 10^3/uL (0.00-0.10) Sodium 141 mEq/L mEq/L (135-145) Potassium 3.6 mEq/L mEq/L (3.3-5.0) Chloride 106 mEq/L mEq/L (97-110) Carbon Dioxide 19 mEq/l L mEq/l (22-31) Anion Gap 16 mEq/L H mEq/L (6-14) BUN 15 mg/dL mg/dL (7-23) Creatinine 1.0 mg/dL mg/dL (0.7-1.3) Estimated GFR > 60 Glucose 113 mg/dL H mg/dL (70-100) Calcium 9.9 mg/dL mg/dL (8.5-10.4) Medications Given: Metronidazole/Sodium Chloride (Flagyl 500 Mg (Premix)) 100 mls @ 100 mls/hr IV EDNOW ONE PRN Reason: Protocol Stop: 01/22/18 19:57 Last Admin: 01/22/18 19:28 Dose: 100 mls Discontinued Medications Ciprofloxacin (Cipro) 500 mg PO EDNOW ONE PRN Reason: Protocol Stop: 01/22/18 18:58 Last Admin: 01/22/18 19:28 Dose: 500 mg Sodium Chloride (Ns) 1,000 mls @ 0 mls/hr IV EDNOW ONE; Wide Open PRN Reason: Protocol Stop: 01/22/18 17:47 Last Admin: 01/22/18 18:02 Dose: 1,000 mls Morphine Sulfate (Morphine) 4 mg IVP EDNOW ONE Stop: 01/22/18 17:47 Last Admin: 01/22/18 18:02 Dose: 4 mg Ondansetron HCl (Zofran) 4 mg IVP EDNOW ONE Stop: 01/22/18 17:47 Last Admin: 01/22/18 18:02 Dose: 4 mg Ondansetron HCl (Zofran Odt 4 Mg Prepack#2) 1 btl TAKEHOME EDNOW ONE Stop: 01/22/18 18:59 Last Admin: 01/22/18 19:29 Dose: 1 btl General Time Seen by Provider: 01/22/18 17:33 Initial Vital Signs: Initial Vital Signs Temperature (C) 36.9 C 01/22/18 17:23 Heart Rate 62 01/22/18 17:23 Respiratory Rate 18 01/22/18 17:23 Blood Pressure 173/91 H 01/22/18 17:23 O2 Sat (%) 98 01/22/18 17:23 O2 Delivery Mode Room Air Allergies/Adverse Reactions: No Known Allergies Allergy (Verified 01/22/18 17:21) Home Medications: Medication Instructions Recorded Losartan Potassium [Cozaar] 100 mg PO DAILY #0 08/04/14 Omeprazole [Prilosec 20 mg] 20 mg PO DAILY #0 08/04/14 Tamsulosin HCl [Flomax 0.4 MG (*)] 0.4 mg PO HS #0 08/04/14 amLODIPine BESYLATE [Norvasc 5 mg 5 mg PO HS 10/01/16 (*)] Betamethasone/Propylene Glyc 1 jeff TP DAILY PRN 03/20/17 [Betamethasone Dp Aug 0.05% Crm] Aspirin EC [Aspirin EC 81 mg (*)] 81 mg PO BID #0 04/07/17 Sennosides/Docusate Sodium 1 - 2 tab PO BID tab 04/07/17 [Senokot-S] Ciprofloxacin [Cipro] 500 mg PO BID #20 tab 01/22/18 Ondansetron Odt [Zofran Odt] 4 mg PO Q4PRN PRN #10 tab 01/22/18 metroNIDAZOLE [Flagyl] 500 mg PO TID #30 tab 01/22/18 Departure - Departure Disposition: Home, Routine, Self-Care Clinical Impression: Diverticulitis Condition: Good Instructions: Ciprofloxacin (By mouth), Metronidazole (By mouth), Diverticulitis (ED), Diverticulitis Diet (ED) Additional Instructions: 1. Take Cipro and Flagyl as prescribed. It is important to finish your entire course of antibiotics even if you are feeling better. 2. Follow up with your primary care provider in 1-2 days. 3. Return to the emergency department for worsening pain, uncontrollable vomiting or diarrhea, blood in your stool, fever, or other worsening of condition. Referrals: Timur Tamayo MD [Primary Care Provider] - As per Instructions Prescriptions: Ciprofloxacin [Cipro] 500 mg PO BID #20 tab metroNIDAZOLE [Flagyl] 500 mg PO TID #30 tab Ondansetron Odt [Zofran Odt] 4 mg PO Q4PRN PRN #10 tab PRN Reason: Nausea Physician Review and Approval Statement: Portions of this note were transcribed by an ED scribe. I personally performed the history, physical exam, and medical decision making; and confirm the accuracy of the information in the transcribed note.
[2018-01-22] MEDS ORDERED: ONDANSETRON 4 MG/2 ML VIAL IVP ONE (17:46)
[2018-01-22] MEDS ORDERED: NS 1,000 ML IV ONE (17:46)
[2018-01-22 18:18] LABS: PLATELET COUNT 219 10^3/uL (150-400)
[2018-01-22] MEDS ORDERED: CIPROFLOXACIN 500 MG TAB PO ONE (18:57)
[2018-01-22] MEDS ORDERED: ONDANSETRON 4MG PREPACK#2 BTL TAKEHOME ONE (18:58)
[2018-01-22] MEDS ORDERED: KETOROLAC 30 MG/1 ML SDV IVP ONE (19:48)
[2018-01-22 20:47] VITALS: BP 112/80
== END 2018-01-22 20:47 | disposition home or self-care (01) ==
DX: K57.32 Diverticulitis of large intestine without perforation or abscess without bleeding (principal)
CPT/HCPCS: 74018; 96365; 96375; 99284; J1885; J2270; J2405

== ENCOUNTER 2018-05-06 13:31 | Emergency (ER) | payer OTHER ==
--- NOTE | 2018-05-06 16:29 | EDPHY ---
H & P Stated Complaint: fell skiing today hit chest/c/o thoracic back pain Time Seen by Provider: 05/06/18 16:18 HPI/ROS: CHIEF COMPLAINT: Upper back pain HISTORY OF PRESENT ILLNESS: Patient is a 68-year-old healthy man who was skiing today when he fell and landed flat on his chest on the snow. This was a few hours ago. He is now complaining of upper thoracic back pain. He denies neck pain. He did not hit his head. He denies shortness of breath. No abdominal pain. He states that his chest does not really hurt but maybe slightly sore. No injuries to his extremities. Pain radiates to both sides of his back more than centrally. No low back pain. No paresthesias numbness or weakness. Severity: Moderate Modifying factors: None REVIEW OF SYSTEMS: Constitutional: denies: chills, fever, recent illness, recent injury EENTM: denies: blurred vision, double vision, nose congestion Respiratory: denies: cough, shortness of breath Cardiac: denies: chest pain, irregular heart rate, lightheadedness, palpitations Gastrointestinal/Abdominal: denies: abdominal pain, diarrhea, nausea, vomiting, blood streaked stools Genitourinary: denies: dysuria, frequency, hematuria, pain Musculoskeletal: Thoracic back pain Skin: denies: lesions, rash, jaundice, bruising Neurological: denies: headache, numbness, paresthesia, tingling, dizziness, weakness Hematologic/Lymphatic: denies: blood clots, easy bleeding, easy bruising Immunologic/allergic: denies: HIV/AIDS, transplant 10 systems reviewed and negative except as noted EXAM: GENERAL: Well-appearing, well-nourished and in no acute distress. HEAD: Atraumatic, normocephalic. EYES: Pupils equal round and reactive to light, extraocular movements intact, sclera anicteric, conjunctiva are normal. ENT: TMs normal, nares patent, oropharynx clear without exudates. Moist mucous membranes. NECK: Normal range of motion, supple without lymphadenopathy or JVD. LUNGS: Breath sounds clear to auscultation bilaterally and equal. No wheezes rales or rhonchi. HEART: Regular rate and rhythm without murmurs, rubs or gallops. ABDOMEN: Soft, nontender, normoactive bowel sounds. No guarding, no rebound. No masses appreciated. BACK: No CVA tenderness, no spinal tenderness, step-offs or deformities EXTREMITIES: Normal range of motion, no pitting or edema. No clubbing or cyanosis. Able to lift arms above head. No weakness. NEUROLOGICAL: Cranial nerves II through XII grossly intact. Normal speech, normal gait. 5/5 strength, normal movement in all extremities, normal sensation , normal reflexes PSYCH: Normal mood, normal affect. SKIN: Warm, dry, normal turgor, no visible rashes or lesions. Source: Patient Exam Limitations: No limitations - Personal History Current Tetanus Diphtheria and Acellular Pertussis (TDAP): Yes - Medical/Surgical History Hx Asthma: No Hx Chronic Respiratory Disease: No Hx Diabetes: No Hx Cardiac Disease: No Hx Renal Disease: No Hx Cirrhosis: No Hx Alcoholism: No Hx HIV/AIDS: No Hx Splenectomy or Spleen Trauma: No Other PMH: GERD, htn, BPH, Arthritic hip, Hepatitis diverticulitis - Social History Smoking Status: Former smoker Constitutional: Initial Vital Signs Temperature (C) 37.1 C 05/06/18 14:20 Heart Rate 69 05/06/18 14:20 Respiratory Rate 18 05/06/18 14:20 Blood Pressure 149/72 H 05/06/18 14:20 O2 Sat (%) 95 05/06/18 14:20 O2 Delivery Mode Room Air Allergies/Adverse Reactions: No Known Allergies Allergy (Verified 05/06/18 14:18) Home Medications: Medication Instructions Recorded Losartan Potassium [Cozaar] 100 mg PO DAILY #0 08/04/14 Omeprazole [Prilosec 20 mg] 20 mg PO DAILY #0 08/04/14 Tamsulosin HCl [Flomax 0.4 MG (*)] 0.4 mg PO HS #0 08/04/14 amLODIPine BESYLATE [Norvasc 5 mg 5 mg PO HS 10/01/16 (*)] Betamethasone/Propylene Glyc 1 jeff TP DAILY PRN 03/20/17 [Betamethasone Dp Aug 0.05% Crm] Aspirin EC [Aspirin EC 81 mg (*)] 81 mg PO BID #0 04/07/17 Hydrocodone/APAP 5/325 [[place] 1 - 2 tab PO Q4H PRN #20 tab 05/06/18 5/325 (RX)] Medical Decision Making - Diagnostics Imaging: Discussed imaging studies w/ square dance caller Radiologist Procedures: Procedure: Splint placement. A Armand wrap was applied. After application of the the wrap I returned and re- examined the patient. The splint was adequately immobilizing the joint and distal to the splint the patient's circulation and sensation was intact. ED Course/Re-evaluation: 6:20 p.m. patient is doing well. We discussed his rib fracture. Clinically appears to be on the left. Will wrapped with Armand optional . Requesting Vicodin for pain. Differential Diagnosis: Partial list of the Differential diagnosis considered include but were not limited to; rib fracture, contusion and although unlikely based on the history and physical exam, I also considered spinal injury, neck injury, pneumothorax. Departure - Departure Disposition: Home, Routine, Self-Care Clinical Impression: Rib fracture Qualifiers: Encounter type: initial encounter Rib fracture type: single rib Fracture type: closed Laterality: left Qualified Code(s): S22.32XA - Fracture of one rib, left side, initial encounter for closed fracture Condition: Fair Instructions: Rib Fracture (ED) Referrals: Timur Tamayo MD [Primary Care Provider] - As per Instructions Prescriptions: Hydrocodone/APAP 5/325 [[place] 5/325 (RX)] 1 - 2 tab PO Q4H PRN #20 tab PRN Reason: Pain, Moderate
[2018-05-06 18:40] VITALS: BP 128/71
== END 2018-05-06 18:40 | disposition home or self-care (01) ==
DX: S22.32XA Fracture of one rib, left side, initial encounter for closed fracture (principal); I10 Essential (primary) hypertension; V00.321A Fall from snow-skis, initial encounter; Y93.23 Activity, snow (alpine) (downhill) skiing, snowboarding, sledding, tobogganing and snow tubing; Y92.9 Unspecified place or not applicable; Y99.9 Unspecified external cause status